=== PATIENT | male | born 1985 | race Hispanic/Latino ===

== ENCOUNTER 2025-05-08 17:06 | Emergency (ER) | payer MEDICARE ==
[~2025-05-08] VITALS: Ht 175.3 cm; Wt 143.3 kg
--- NOTE | 2025-05-08 17:19 | ERN ---
General Chief Complaint: Shortness of Breath Stated Complaint: SOB Time Seen by MD: 17:08 Time Seen by Midlevel: 17:08 Source: patient History of Present Illness Initial Comments The patient is a 39-year-old morbidly obese male presenting to the emergency department for evaluation of flu-like symptoms that started yesterday. Symptoms consist of sore throat, rhinorrhea, and shortness of breath. The patient reports having a history of congestive heart failure in his on 40 mg of fur osemide daily. He is followed by cardiology but is not from the [place] patient states he is from [place]. Allergies: Coded Allergies: No Known Drug Allergies (Unverified Allergy, Unknown, 03/28/23) Home Meds No Active Prescriptions or Reported Meds Past Medical History Past Medical History: CHF, Diabetes-Type II, Hypertension Medical History Other: BILAT DROP FOOT Past Surgical History: Other Surgical History Other: TRACHEOSTOMY, FEEDING TUBE Family History Family History: CAD, HTN, Negative Social History Social History: Smokers, ETOH, Lives with family ROS Dictation CONSTITUTIONAL: Negative except for HPI HEAD/FACE: Negative except for HPI EENT: Negative except for HPI RESPIRATORY: Negative except for HPI GASTROINTESTINAL/ABDOMINAL: Negative except for HPI GENITOURINARY: Negative except for HPI MUSCULOSKELETAL: Negative except for HPI INTEGUMENTARY: Negative except for HPI NEUROLOGICAL/PSYCH: Negative except for HPI HEMATOLOGIC/LYMPHATIC: Negative except for HPI All Systems Negative, Except as noted above. 13 point review of systems assessed and all negative except for above. Physical Exam Physical Exam Dictation Vital Signs reviewed General Appearance: Alert, oriented x 3, no acute distress, morbidly obese Head and Face: non-traumatic. Eyes: PERRL, pink conjunctivas, eyelid no trauma, anterior chamber with arcus senilis. Ears: Pinnas intact and no signs of trauma or erythema ear canals clear and no discharge TM no erythema Nose: No discharge, no bleeding. Oropharynx: Mouth normal, tongue pink, pharynx clear,no erythema, tonsils no exudates, no abscesses noted, mucous membrane moist Neck: Supple, non-tender, no thyromegaly, no masses, no JVD, no bruits Breast:Deferred Chest:No tenderness, no crepitus, no paradoxical movement, no retractions Lungs:Clear, well-ventilated, symmetric, no rales, wheezing to bilateral lung ley, no rhonchi, no stridor, good breath sounds bilaterally Heart: Regular rate, regular rhythm, no murmur, no gallops Vascular: no peripheral edema, Abdomen: Soft, positive bowel sounds, nondistended, no guarding, nontender, no rebound, no masses no hepatomegaly, no splenomegaly, no Borja's sign, no hernias. Rectal: Deferred Genital: Deferred Neurological: Normal speech, motor function intact, sensory function intact Musculoskeletal: Neck nontender, full range of motion, back nontender, full range of motion, Extremities: nontender, full range of motion Skin: Color pink, dry, no turgor, no rash, no lacerations, no abrasions, no con tusions. Lymphatic: Deferred Results Laboratory and Microbiology Lab and Micro Result Laboratory Tests Test 05/08/25 17:10 05/08/25 17:52 Influenza Type A Antigen Negative For Type A Influenza Type B Antigen Negative For Type B SARS-CoV-2, RNA, NAAT NEGATIVE SARS CoV-2 White Blood Count 9.5 K/uL (4.8-10.8) Red Blood Count 4.99 MIL/uL (4.50-6.20) Hemoglobin 16.0 g/dL (14.0-18.0) Hematocrit 46.6 % (42-54) Mean Corpuscular Volume 93.4 fL (79-99) Mean Corpuscular Hemoglobin 32.1 pg (27.0-33.0) Mean Corpuscular Hemoglobin Concent 34.3 g/dL (32.0-36.0) Red Cell Distribution Width 13.2 % (11.0-15.5) Platelet Count 273 K/uL (130-400) Mean Platelet Volume 9.8 fL (7.5-10.5) Immature Granulocyte % (Auto) 0.4 % (0-1) Neutrophils (%) (Auto) 65.3 % (40.0-77.0) Lymphocytes (%) (Auto) 21.5 % (21.0-51.0) Monocytes (%) (Auto) 8.6 % (3.0-13.0) Eosinophils (%) (Auto) 3.8 % (0.0-8.0) Basophils (%) (Auto) 0.4 % (0.0-5.0) Neutrophils # (Auto) 6.2 K/uL (1.8-7.7) Lymphocytes # (Auto) 2.0 K/uL (1.0-4.8) Monocytes # (Auto) 0.8 K/uL (0.1-1.0) Eosinophils # (Auto) 0.36 K/uL (0.00-0.70) Basophils # (Auto) 0.04 K/uL (0.00-0.20) Absolute Immature Granulocyte (auto 0.04 K/uL (0-1) Nucleated Red Blood Cells 0.0 % (0.0-0.19) Sodium Level 139 mmol/L (136-145) Potassium Level 3.9 mmol/L (3.5-5.1) Chloride Level 100 mmol/L (101-111) L Carbon Dioxide Level 31 mmol/L (21-32) Blood Urea Nitrogen 8 mg/dL (7-18) Creatinine 0.9 mg/dL (0.5-1.3) Glomerular Filtration Rate Calc 112 mL/min (>90) Random Glucose 102 mg/dL (70-105) Total Calcium 8.6 mg/dL (8.5-10.1) Troponin I High Sensitivity 6 ng/L (4-75) B-Type Natriuretic Peptide 150 pg/mL (0-100) H Labs Reviewed?: Yes MDM MDM: Differential diagnosis: Pneumonia, CHF exacerbation, viral illness There are no social concerns with this patient. Prescription drug management Prescriptions will include: Augmentin Medical management and examination interpretation discussions were had by me with other qualified healthcare professionals as indicated for the patient's care. ED Course Orders Procedure Category Date Status Time 12 Lead Ekg Tracing- EKG 05/08/25 Logged Technical 17:12 Covid Rna Naat LAB 05/08/25 Complete 17:12 Influenza Type A & B, LAB 05/08/25 Complete Rapid 17:12 Cbc With Differential LAB 05/08/25 Complete 17:12 Basic Metabolic Panel LAB 05/08/25 Complete 17:12 B-Type Natriuretic LAB 05/08/25 Complete Peptide 17:12 Troponin I High LAB 05/08/25 Complete Sensitivity 17:12 Chest 1vw RAD 05/08/25 Resulted 17:12 Ipratropium/Albuterol PHA 05/08/25 Complete Neb (Duoneb) 17:30 Methylprednisolone PHA 05/08/25 Complete Succ 125mg (Solu-Medr 17:30 Current Medications Medications (Trade) Dose Ordered Sig/Nadeem Route PRN Reason Start Time Stop Time Status Last Admin Dose Admin Albuterol (DUOneb) 1 UDVIAL ONCE ONCE IH 05/08/25 17:30 05/08/25 17:31 DC Methylprednisolone Sodium Succinate (Solu-medROL 125MG) 125 mg ONCE ONCE IVP 05/08/25 17:30 05/08/25 17:31 DC 05/08/25 18:08 Vital Signs Date Time Temp Pulse Resp B/P (MAP) Pulse Ox O2 Delivery O2 Flow Rate FiO2 05/08/25 17:08 98.2 96 16 150/94 95 Room Air 0 [facility] [address] [place] [id number] IMAGING REPORT Signed PATIENT: ALEXA COY MR#: [id number] : 1985 SEX: M AGE: 39 LOCATION: [facility] ORDER 14 STATUS: REG ER REPORT#: [id number] SERVICE 11 REASON: sob, cough ORDERING PHYSICIAN: LAYO MARKS PROCEDURE: CXR1VW - CHEST 1VW EXAM: Chest radiograph 1 view HISTORY: Cough COMPARISON: 07/15/2023 FINDINGS: Left perihilar airspace disease. No pleural effusion or pneumothorax. Normal cardiac silhouette. No overt congestion. No suspicious osseous lesion. IMPRESSION: Left perihilar pneumonia /[place] DICTATED BY: ANA CAIN MD DATE: 05/08/251944 ELECTRONICALLY SIGNED BY: ANA CAIN MD DATE: 05/08/251944 DX & DISP Disposition: Discharge Departure Impression: Primary Impression: Pneumonia involving left lung Condition: Stable Scripts Amoxicillin/Potassium Clav (Amox Tr-K Clv 875-125 mg Tab) 875 Mg-125 Mg Tablet 1 EACH PO BID for 7 Days, #14 TAB 0 Refills Prov: LAYO MARKS 05/08/25 Additional Instructions: Your blood work today is unremarkable. Your CBC shows a normal white blood cell count. You are not anemic. Kidney function is normal. Electrolytes are normal. Your chest x-ray however shows what appears to be the start of pneumonia on your left side. You were given 2 g of ceftriaxone in the emergency department. I have given you a prescription for Augmentin for outpatient management. Follow up with your primary care doctor in 2-3 days for repeat evaluation. If your symptoms do not improve over the next 3-4 days please return to the ER for further evaluation. Referrals: SELF,REFERRAL (PCP) I have reviewed the case, and I agree with, Diagnosis and Plan I performed the substantive portion of the visit. I have reviewed and personally made and approve the management plan that is documented in the note by myself or the [facility]. I acknowledge for responsibility for the patient's management plan. LAYO MARKS May 08, 2025 17:19
[2025-05-08 17:34] LABS: SARS-CoV-2, RNA, NAAT NEGATIVE SARS CoV-2 (NEGATIVE)
[2025-05-08 17:38] LABS: INFLUENZA TYPE A Negative For Type A (NEGATIVE); INFLUENZA TYPE B Negative For Type B (NEGATIVE)
[2025-05-08 18:01] LABS: IMMATURE GRANULOCYTE ABSOLUTE 0.04 K/uL (0-1); NUCLEATED RED BLOOD CELLS 0.0 % (0.0-0.19); PLATELET COUNT (AUTO) 273 K/uL (130-400); RED BLOOD CELL COUNT(AUTO) 4.99 MIL/uL (4.50-6.20); RED CELL DISTRIBUTION WIDTH 13.2 % (11.0-15.5); WHITE BLOOD COUNT (AUTO) 9.5 K/uL (4.8-10.8)
[2025-05-08 18:14] LABS: CREATININE 0.9 mg/dL (0.5-1.3); GLOMERULAR FILTR. RATE CALC 112.0 mL/min (>90); GLUCOSE,RANDOM 102.0 mg/dL (70-105); SODIUM SERUM 139.0 mmol/L (136-145); UREA NITROGEN, BLOOD 8.0 mg/dL (7-18)
--- NOTE | 2025-05-08 18:46 | HMCIMG ---
EXAM: Chest radiograph 1 view HISTORY: Cough COMPARISON: 07/15/2023 FINDINGS: Left perihilar airspace disease. No pleural effusion or pneumothorax. Normal cardiac silhouette. No overt congestion. No suspicious osseous lesion. IMPRESSION: Left perihilar pneumonia /[place]
[2025-05-08] MEDS ORDERED: AMOX1TAB16 PO (18:58)
[2025-05-08 19:30] VITALS: PULSE 104; RESP 19
[2025-05-08 20:00] VITALS: BP 133/75; PULSE 100; RESP 20; TEMP 97.8; O2SAT 97
--- NOTE | 2025-05-09 06:39 | EKG ---
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
[2025-05-12] MEDS ORDERED: HYDR-4060 PO (16:36)
[2025-05-12] MEDS ORDERED: BUPR-93 PO (16:36)
[2025-05-12] MEDS ORDERED: METF-444 PO (16:36)
[2025-05-12] MEDS ORDERED: POTA20PA32 PO (16:36)
[2025-05-12] MEDS ORDERED: FURO40TA5 PO (16:37)
[2025-05-15] MEDS ORDERED: HYDR-4060 PO (16:25)
[2025-05-16] MEDS ORDERED: ENOX40DI8 SQ (06:47)
== END 2025-05-08 20:01 | disposition home or self-care (01) ==
LOC: EDH 17:06
DX: J18.9 Pneumonia, unspecified organism (principal); I11.0 Hypertensive heart disease with heart failure; I50.9 Heart failure, unspecified; E11.9 Type 2 diabetes mellitus without complications; F17.200 Nicotine dependence, unspecified, uncomplicated; Z20.822 Contact with and (suspected) exposure to COVID-19
CPT/HCPCS: 99285; 96365; 71045; 87635; 96375; 84484; 80048; 83880; 85025; 87804 ×2; 36415; 93005; 94640; J2919; J0696; 99284

== ENCOUNTER 2025-05-10 19:36 | Emergency (ER) | payer MEDICARE, MEDICAID ==
[~2025-05-10] VITALS: Ht 175.3 cm; Wt 143.3 kg
[~2025-05-10 19:36] MED LIST: AMOX1TAB16 PO
[2025-05-10] MEDS: HYDROcodone/APAP 5/325 1 TAB TABLET PO STA (20:05)
[2025-05-10 21:47] LABS: IMMATURE GRANULOCYTE ABSOLUTE 0.06 K/uL (0-1); NUCLEATED RED BLOOD CELLS 0.0 % (0.0-0.19); PLATELET COUNT (AUTO) 275 K/uL (130-400); RED BLOOD CELL COUNT(AUTO) 5.09 MIL/uL (4.50-6.20); RED CELL DISTRIBUTION WIDTH 13.2 % (11.0-15.5); WHITE BLOOD COUNT (AUTO) 13.2 K/uL (4.8-10.8)
[2025-05-10 21:55] LABS: CREATININE 1.0 mg/dL (0.5-1.3); GLOMERULAR FILTR. RATE CALC 99.0 mL/min (>90); GLUCOSE,RANDOM 102.0 mg/dL (70-105); SODIUM SERUM 139.0 mmol/L (136-145); UREA NITROGEN, BLOOD 16.0 mg/dL (7-18)
--- NOTE | 2025-05-10 22:02 | HMCIMG ---
EXAM: CR Right Knee, 3 views. CLINICAL HISTORY: Pain. Fall. COMPARISON: Radiograph of the right knee dated 07/13/2023. FINDINGS: Comminuted acute intra-articular fracture involving the medial tibial plateau and proximal tibial metaphysis. Nondisplaced acute fracture of the proximal fibular epimetaphysis. Moderate suprapatellar effusion. Mild tricompartmental knee joint osteoarthritis. IMPRESSION: Comminuted acute intra-articular fracture involving the medial tibial plateau and proximal tibial metaphysis. Nondisplaced acute fracture of the proximal fibular epimetaphysis. Moderate suprapatellar effusion. The findings are new compared to the previous radiograph. /[place]
--- NOTE | 2025-05-10 22:04 | ERN ---
ED Note History of Present Illness Stated Complaint: FALL Chief Complaint: Knee Injury/Swelling Time Seen by MD: 19:40 Time Seen by Midlevel: 19:44 Dictation: 39-year-old male with a history of foot drop, assisted ambulation with a walker coming in for ground level fall. Patient states it is socks were slippery and fell landed on his right knee. Complaining of pain to the right knee and swelling. Denies any head injury, no LOC. No blood thinners. Allergies: Coded Allergies: No Known Drug Allergies (Unverified Allergy, Unknown, 03/28/23) Home Meds Active Scripts Amoxicillin/Potassium Clav (Amox Tr-K Clv 875-125 mg Tab) 875 Mg-125 Mg Tablet, 1 EACH PO BID for 7 Days, #14 TAB 0 Refills Prov:LAYO MARKS 05/08/25 Past Medical History Past Medical History: CHF, Diabetes-Type II, Hypertension Additional Past Medical Hx: BILAT DROP FOOT, HIGH CHOLESTEROL Surgical History: Other Surgical History Other: TRACHEOSTOMY, FEEDING TUBE Family History: CAD, HTN, Negative Social History: Smokers, ETOH, Lives with family Review of System Dictation Constitutional: Negative for fever,chills, and weight loss Eyes: Negative for injury, pain,redness, and discharge ENT: Negative for injury,pain or swelling Cardiovascular: Negative for chest pain, palpitations, and edema Respiratory: Negative for shortness of breath, cough, and wheezing, Abdomen/GI: Negative for abdominal pain, nausea, vomiting, diarrhea, and constipation Back: Negative for injury and pain : Negative for injury, bleeding and discharge MS/Extremity: Complaining of right knee pain Skin: Negative for rash, and discoloration Neuro: Negative for headache, weakness, numbness, tingling, and seizure Psych: Negative for suicide ideation, homicidal ideation, and hallucinations Review of Systems: was completed Initial Vital Sign VS Vital Signs Date Time Temp Pulse Resp B/P (MAP) Pulse Ox O2 Delivery O2 Flow Rate FiO2 05/10/25 19:45 101 20 122/84 96 Room Air 0 05/10/25 20:05 99.0 21 Physical Exam Dictation General: awake, alert, NAD Head/Face: Normocephalic, atraumatic Eyes: PERRL, EOMI, vision at baseline ENT: oral cavity clear, TMs clear, no signs of infection Neck: Trachea midline, supple, no nuchal rigidity Cardiovascular: RRR, normal S1/S2, No MRGs, no JVD Respiratory: CTAB, no respiratory distress, No rales or wheezes Abdomen: Soft, non-tender, non-distended, normal bowel sounds, no guarding or rebound. Skin: Warm, dry, normal turgor, no rash MS/Extremity: Pain to the right knee on the inner aspect, minimal swelling. Good distal pulses Neuro: COAx4, GCS 15, strength 5/5, CN 2-12 intact, normal cerebellar exam, normal gait, Psych: Normal behavior, mood, and affect normal Results (Laboratory/Radiology) Laboratory/Radiology Laboratory Tests Test 05/10/25 21:41 White Blood Count 13.2 K/uL (4.8-10.8) H Red Blood Count 5.09 MIL/uL (4.50-6.20) Hemoglobin 16.6 g/dL (14.0-18.0) Hematocrit 47.7 % (42-54) Mean Corpuscular Volume 93.7 fL (79-99) Mean Corpuscular Hemoglobin 32.6 pg (27.0-33.0) Mean Corpuscular Hemoglobin Concent 34.8 g/dL (32.0-36.0) Red Cell Distribution Width 13.2 % (11.0-15.5) Platelet Count 275 K/uL (130-400) Mean Platelet Volume 9.7 fL (7.5-10.5) Immature Granulocyte % (Auto) 0.5 % (0-1) Neutrophils (%) (Auto) 62.0 % (40.0-77.0) Lymphocytes (%) (Auto) 26.8 % (21.0-51.0) Monocytes (%) (Auto) 7.4 % (3.0-13.0) Eosinophils (%) (Auto) 2.7 % (0.0-8.0) Basophils (%) (Auto) 0.6 % (0.0-5.0) Neutrophils # (Auto) 8.2 K/uL (1.8-7.7) H Lymphocytes # (Auto) 3.6 K/uL (1.0-4.8) Monocytes # (Auto) 1.0 K/uL (0.1-1.0) Eosinophils # (Auto) 0.36 K/uL (0.00-0.70) Basophils # (Auto) 0.08 K/uL (0.00-0.20) Absolute Immature Granulocyte (auto 0.06 K/uL (0-1) Nucleated Red Blood Cells 0.0 % (0.0-0.19) Sodium Level 139 mmol/L (136-145) Potassium Level 3.6 mmol/L (3.5-5.1) Chloride Level 101 mmol/L (101-111) Carbon Dioxide Level 31 mmol/L (21-32) Blood Urea Nitrogen 16 mg/dL (7-18) Creatinine 1.0 mg/dL (0.5-1.3) Glomerular Filtration Rate Calc 99 mL/min (>90) Random Glucose 102 mg/dL (70-105) Total Calcium 8.5 mg/dL (8.5-10.1) Labs Reviewed?: Yes ED Course ED Course Orders Procedure Category Date Status Time Knee 3vws Rt RAD 05/10/25 Taken 19:52 Hydrocodone/Apap PHA 05/10/25 Complete 5/325 ([place] 5/325mg) 19:52 Cbc With Differential LAB 05/10/25 Complete 21:34 Basic Metabolic Panel LAB 05/10/25 Complete 21:34 Place Knee Imobilizer CPOE 05/10/25 Verified To: (Er) 21:59 Current Medications Medications (Trade) Dose Ordered Sig/Nadeem Route PRN Reason Start Time Stop Time Status Last Admin Dose Admin Acetaminophen/ Hydrocodone Bitart (NORco 5/325MG) 1 tab ONCE STAT PO 05/10/25 19:52 05/10/25 19:54 DC 05/10/25 20:05 Vital Signs Date Time Temp Pulse Resp B/P (MAP) Pulse Ox O2 Delivery O2 Flow Rate FiO2 05/10/25 20:05 99.0 106 20 129/78 95 Room Air* 0 21 05/10/25 19:45 101 20 122/84 96 Room Air 0 Medical Decision Making MDM MDM: 39-year-old male with a history of foot drop, assisted ambulation with a walker coming in for ground level fall. Patient states it is socks were slippery and fell landed on his right knee. Complaining of pain to the right knee and swelling. Denies any head injury, no LOC. No blood thinners. X-ray shows proximal tib fracture interpreted by myself. Images and case were discussed with Dr. Mcgee, orthopedic surgeon on-call. Recommended patient to be placed in a knee immobilizer, follow up in his office tomorrow and set up with the surgery for Friday. This was discussed with the patient. Patient agreed with the plan. We will give patient they information of Dr. Mcgee was to follow up outpatient. Educated patient on signs and symptoms of when to return back to the ER and to take Tylenol or Motrin [id number] for pain control. Patient verbalized understanding, answered all questions. Differential diagnosis: Knee contusion, knee fracture, knee dislocation, Rationale: Tests considered and ordered secondary to shared decision making include: Previous outside records reviewed: Old ER visits. Risk of complication and/or morbidity or mortality of patient management: None Medications-Per medication reconciliation Need for hospitalization: Patient does not meet criteria for hospitalization. Need for emergency major/minor surgery: No There are no social concerns with this patient. Prescription drug management Prescriptions will include symptomatic care Patient's prior external medical records from other ER visits were reviewed by me as indicated. Prior testing and results from previous visits were reviewed. Prior tests were taken into account with medical decision making and resource utilization, independent historian/historians were used to obtain complete medical history. I independently interpreted the test that were performed, results were reviewed by me and considered findings on radiology if ordered. Medical management and examination interpretation discussions were had by me with other qualified healthcare professionals as indicated for the patient's care. DX & DISP Disposition: Discharge Departure Impression: Primary Impression: Fracture of proximal end of tibia Condition: Stable Additional Instructions: ER to follow up with the Dr. Mcgee was office tomorrow. He has a name and date of . Do not bear weight on that right leg. Keep knee immobilizer on. Take Tylenol or Motrin [id number]. You can apply ice to help with the swelling. Referrals: SELF,REFERRAL (PCP) HARMONY MCGEE MD Time of Disposition: 22:03 I have reviewed the case, and I agree with, Diagnosis and Plan RELL MICHELLE NP May 10, 2025 22:04
--- NOTE | 2025-05-10 22:20 | NUR ---
KNEE IMOBILIZER APPLIED ORDERED
[2025-05-10 22:35] VITALS: BP 134/74; PULSE 99; RESP 20; TEMP 98.6; O2SAT 96
[2025-05-11] MEDS ORDERED: ACET-2079 PO (14:56)
[2025-05-12] MEDS ORDERED: POTA20PA32 PO (16:36)
[2025-05-12] MEDS ORDERED: METF-444 PO (16:36)
[2025-05-12] MEDS ORDERED: HYDR-4060 PO (16:36)
[2025-05-12] MEDS ORDERED: BUPR-93 PO (16:36)
[2025-05-12] MEDS ORDERED: FURO40TA5 PO (16:37)
[2025-05-15] MEDS ORDERED: HYDR-4060 PO (16:25)
[2025-05-16] MEDS ORDERED: ENOX40DI8 SQ (06:47)
== END 2025-05-10 22:41 | disposition home or self-care (01) ==
LOC: EDH 19:36
DX: S82.141A Displaced bicondylar fracture of right tibia, initial encounter for closed fracture (principal); E11.9 Type 2 diabetes mellitus without complications; E78.00 Pure hypercholesterolemia, unspecified; F17.200 Nicotine dependence, unspecified, uncomplicated; I11.0 Hypertensive heart disease with heart failure; I50.9 Heart failure, unspecified; W18.39XA Other fall on same level, initial encounter; Y93.89 Activity, other specified; Y92.89 Other specified places as the place of occurrence of the external cause; Y99.8 Other external cause status
CPT/HCPCS: 29505; 36415; 73562; 80048; 85025; 99284

== ENCOUNTER 2025-05-11 14:36 | Emergency (ER) | payer MEDICARE, MEDICAID ==
[~2025-05-11] VITALS: Ht 175.3 cm; Wt 143.3 kg
[2025-05-11] MEDS ORDERED: ACET-2079 PO (14:56)
[2025-05-11 14:58] VITALS: BP 142/95; PULSE 98; RESP 18; TEMP 98.1; O2SAT 96
--- NOTE | 2025-05-11 14:59 | ERN ---
ED Note History of Present Illness Stated Complaint: RT LOWER EXT PAIN Chief Complaint: Lower Extremity Pain/Injury Time Seen by MD: 14:45 Dictation: PATIENT IS A 39-YEAR-OLD MALE COMING IN TODAY VIA EMS WITH COMPLAINTS OF RIGHT LOWER LEG PAIN STATUS POST A SAME LEVEL FALL YESTERDAY. [place] [facility] [place] DIAGNOSED WITH A TIBIAL PLATEAU FRACTURE IMMOBILIZER WAS IN PLACE AND HE WAS DISCHARGED HOME TO FOLLOW UP WITH DR. MUNOZ TODAY AT 15:00 HOURS. HE STATES HE CAME TO THE EMERGENCY ROOM INSTEAD BECAUSE HE DID NOT GET DISCHARGED HOME WITH A ANYTHING FOR PAIN. IMMOBILIZER IN PLACE TO RIGHT LEG NEUROVASCULAR CMS INTACT. Allergies: Coded Allergies: No Known Drug Allergies (Unverified Allergy, Unknown, 03/28/23) Home Meds Active Scripts Amoxicillin/Potassium Clav (Amox Tr-K Clv 875-125 mg Tab) 875 Mg-125 Mg Tablet, 1 EACH PO BID for 7 Days, #14 TAB 0 Refills Prov:LAYO MARKS 05/08/25 Past Medical History Past Medical History: CHF, Diabetes-Type II, Hypertension Additional Past Medical Hx: BILAT FOOT DROP, Surgical History: Other Surgical History Other: RT ANKLE SX Family History: CAD, HTN, Negative Social History: Smokers, ETOH, Lives with family RN Note Reviewed/Agreed w/PFSH: Yes Review of System Dictation CONSTITUTIONAL: NEGATIVE EXCEPT FOR HPI HEAD/FACE: NEGATIVE EXCEPT FOR HPI EENT: NEGATIVE EXCEPT FOR HPI RESPIRATORY: NEGATIVE EXCEPT FOR HPI GASTROINTESTINAL/ABDOMINAL: NEGATIVE EXCEPT FOR HPI GENITOURINARY: NEGATIVE EXCEPT FOR HPI MUSCULOSKELETAL: NEGATIVE EXCEPT FOR HPI RIGHT LOWER LEG PAIN INTEGUMENTARY: NEGATIVE EXCEPT FOR HPI NEUROLOGICAL/PSYCH: NEGATIVE EXCEPT FOR HPI HEMATOLOGIC/LYMPHATIC: NEGATIVE EXCEPT FOR HPI ALL SYSTEMS NEGATIVE, EXCEPT NOTED ABOVE. 13 POINT REVIEW OF SYSTEMS ASSESSED AND ALL NEGATIVE EXCEPT FOR ABOVE. Initial Vital Sign VS Vital Signs Date Time Temp Pulse Resp B/P (MAP) Pulse Ox O2 Delivery O2 Flow Rate FiO2 05/11/25 14:43 98.1 98 18 142/95 96 Room Air 0 Physical Exam Dictation VITAL SIGNS REVIEWED GENERAL APPEARANCE: ALERT, ORIENTED X 3, MODERATE ACUTE DISTRESS, WELL DEVELOPED, NOURISHED. MORBID OBESITY HEAD AND FACE: NON-TRAUMATIC. EYES: PERRL, PINK CONJUNCTIVAS, EYELID NO TRAUMA, ANTERIOR CHAMBER WITH ARCUS SENILIS. EARS: PINNAS INTACT AND NO SIGNS OF TRAUMA OR ERYTHEMA EAR CANALS CLEAR AND NO DISCHARGE TM NO ERYTHEMA NOSE: NO DISCHARGE, NO BLEEDING. OROPHARYNX: MOUTH NORMAL, TONGUE PINK, PHARYNX CLEAR,NO ERYTHEMA, TONSILS NO EXUDATES, NO ABSCESSES NOTED, MUCOUS MEMBRANE MOIST NECK: SUPPLE, NON-TENDER, NO THYROMEGALY, NO MASSES, NO JVD, NO BRUITS BREAST:DEFERRED CHEST:NO TENDERNESS, NO CREPITUS, NO PARADOXICAL MOVEMENT, NO RETRACTIONS LUNGS:CLEAR, WELL-VENTILATED, SYMMETRIC, NO RALES, NO WHEEZING, NO RHONCHI, NO STRIDOR, GOOD BREATH SOUNDS BILATERALLY HEART: REGULAR RATE, REGULAR RHYTHM, NO MURMUR, NO GALLOPS VASCULAR: NO PERIPHERAL EDEMA, ABDOMEN: SOFT, POSITIVE BOWEL SOUNDS, NONDISTENDED, NO GUARDING, NONTENDER, NO REBOUND, NO MASSES NO HEPATOMEGALY, NO SPLENOMEGALY, NO ZENG'S SIGN, NO HERNIAS. RECTAL: DEFERRED GENITAL: DEFERRED NEUROLOGICAL: NORMAL SPEECH, MOTOR FUNCTION INTACT, SENSORY FUNCTION INTACT MUSCULOSKELETAL: NECK NONTENDER, FULL RANGE OF MOTION, BACK NONTENDER, FULL RANGE OF MOTION, EXTREMITIES: KNEE IMMOBILIZER IN PLACE ON ARRIVAL TO RIGHT LOWER EXTREMITY. DISTAL NEUROVASCULAR CMS INTACT. SKIN: COLOR PINK, DRY, NO TURGOR, NO RASH, NO LACERATIONS, NO ABRASIONS, NO CONTUSIONS. LYMPHATIC: DEFERRED Results (Laboratory/Radiology) Labs Reviewed?: Yes ED Course ED Course Orders Procedure Category Date Status Time Ketorolac 60mg/2ml PHA 05/11/25 Verified (Toradol 60mg/2ml) 15:00 Acetaminophen With PHA 05/11/25 Verified Codeine (Tylenol-Code 15:00 Vital Signs Date Time Temp Pulse Resp B/P (MAP) Pulse Ox O2 Delivery O2 Flow Rate FiO2 05/11/25 14:43 98.1 98 18 142/95 96 Room Air 0 1455/* NO IMAGING INDICATED PATIENT HAS ALREADY HAD THAT PERFORMED YESTERDAY [place] [facility] HE WILL BE GIVEN TORADOL AND TYLENOL NO. 3 DISCHARGED HOME WITH TYLENOL NO. 3 AND KEEP HIS APPOINTMENT WITH DR. MUNOZ KEEP IMMOBILIZER ON UNTIL CLEARED BY HIS ORTHOPEDIC SURGEON. Medical Decision Making MDM MEDICAL DECISION-MAKING BASED ON TREATMENT FOR ACUTE LOWER EXTREMITY PAIN. PATIENT HAS KNOWN RIGHT TIBIAL PLATEAU FRACTURE X-RAYS AND PAIN MANAGEMENT PERFORMED YESTER[place] [facility] [place]. IMMOBILIZER IN PLACE PATIENT HAS A AN APPOINTMENT WITH DR. OMAR MCGEE/ORTHOPEDIC SURGEON. DISCHARGED HOME WITH TYLENOL NO. 3 DISTAL NEUROVASCULAR CMS INTACT RIGHT LEG DX & DISP Disposition: Discharge Departure Impression: Primary Impression: Fracture of proximal end of tibia Condition: Stable Scripts Acetaminophen with Codeine (Acetaminophen-Cod #3 Tablet) 300 Mg-30 Mg Tablet 1 TAB PO Q4H PRN for MODERATE TO SEVERE PAIN, #20 TAB 0 Refills Prov: ABRAHAM DOW NP 05/11/25 Additional Instructions: Follow-up with primary care provider in 1 to 2 days. Take medications as directed here in the emergency room. Okay to continue home medications unless otherwise discussed during your visit in the emergency room today. Return to your nearest emergency room if symptoms worsen or if there is no improvement. Call 911 if you need immediate assistance. Take Tylenol or Motrin [id number] as needed and if no contraindications are present. Increase oral hydration. A wound culture or urine culture was ordered here in the emergency room department please follow-up with primary care provider and advise them to get repeat ports from our facility. If you had any Colt wrap/splints that were applied here, please do not remove them until you see your primary care or specialty. Take Tylenol with codeine as directed for severe pain. Continue with knee brace and no weight-bearing to your right leg until cleared by Dr. Omar mcgee. Cool compresses to leg three to 4 times a day. Referrals: SELF,REFERRAL (PCP) OMAR MCGEE MD Time of Disposition: 14:55 I have reviewed the case, and I agree with, Diagnosis and Plan ABRAHAM DOW NP May 11, 2025 14:59
[2025-05-12] MEDS ORDERED: METF-444 PO (16:36)
[2025-05-12] MEDS ORDERED: POTA20PA32 PO (16:36)
[2025-05-12] MEDS ORDERED: HYDR-4060 PO (16:36)
[2025-05-12] MEDS ORDERED: BUPR-93 PO (16:36)
[2025-05-12] MEDS ORDERED: FURO40TA5 PO (16:37)
[2025-05-15] MEDS ORDERED: HYDR-4060 PO (16:25)
[2025-05-16] MEDS ORDERED: ENOX40DI8 SQ (06:47)
== END 2025-05-11 15:18 | disposition home or self-care (01) ==
LOC: EDH 14:36
DX: S82.101A Unspecified fracture of upper end of right tibia, initial encounter for closed fracture (principal); E11.9 Type 2 diabetes mellitus without complications; I11.0 Hypertensive heart disease with heart failure; I50.9 Heart failure, unspecified; F17.200 Nicotine dependence, unspecified, uncomplicated; W18.39XA Other fall on same level, initial encounter; Y93.89 Activity, other specified; Y92.89 Other specified places as the place of occurrence of the external cause; Y99.8 Other external cause status
CPT/HCPCS: 99283; 96372; J1885